=== PATIENT | male | born 1985 | race Caucasian/White ===

== ENCOUNTER 2020-08-24 21:23 | Emergency (ER) | payer MEDICAID ==
[~2020-08-24] VITALS: Ht 180.3 cm; Wt 85.0 kg
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
[2020-08-24 21:56] LABS: BASOPHILS % (AUTO) 1 % (0-1); EOSINOPHILS % (AUTO) 1 % (1-7); LYMPHOCYTES % (AUTO) 16 % (22-44); MEAN CORPUSCULAR HEMOGLOBIN 32.4 pg (27.5-34.5); MEAN CORPUSCULAR HGB CONC 34.5 g/dL (33.2-36.2); MEAN PLATELET VOLUME 6.5 fL (7.4-10.4); MONOCYTES % (AUTO) 8 % (2-9); NEUTROPHILS % (AUTO) 75 % (42-75); PLATELET COUNT 306 x10^3/uL (130-400); RED CELL DISTRIBUTION WIDTH 13.7 % (9.4-14.8)
[2020-08-24 21:57] LABS: MD NO
[2020-08-24 22:04] LABS: ANION GAP 5 mmol/L (5-15); CALCIUM 8.4 mg/dL (8.5-10.1); CHLORIDE 112 mmol/L (98-107); CREATININE 1.09 mg/dL (0.7-1.3)
[2020-08-24 22:05] LABS: ALANINE AMINOTRANSFERASE 34 U/L (12-78); ALBUMIN 3.6 g/dL (3.4-5.0)
[2020-08-24 22:07] LABS: ALKALINE PHOSPHATASE 69 U/L (45-117); BILIRUBIN,TOTAL 0.7 mg/dL (0.2-1.0); TOTAL PROTEIN 6.7 g/dL (6.4-8.2)
--- NOTE | 2020-08-24 22:11 | NUR ---
THIS RN TRIED TO GET PT TO URINATE FOR UA SAMPLE. PT KEEPS FALLING ASLEEP WHILE TRYING TO COMPLETE TASK. RN WILL TRY AGAIN LATER, PT RESTING ON GURNEY, DENIES NEEDS AT THIS TIME
--- NOTE | 2020-08-24 22:53 | NUR ---
PT STRAIGHT CATHED PER ERP, PT TOLERATED WELL, RESTING COMFORTABLY GURNEY, DENIES NEEDS AT THIS TIME.
[2020-08-24 23:12] LABS: AMPHETAMINE SCREEN, URINE Negative (Negative); BARBITURATE SCREEN, URINE Negative (Negative); BENZODIAZEPINE SCREEN, URINE Negative (Negative); CANNABINOID SCREEN, URINE Positive (Negative); COCAINE SCREEN, URINE Negative (Negative); METHADONE SCREEN, URINE Negative (Negative); OPIATE SCREEN, URINE Positive (Negative)
[2020-08-25] MEDS ORDERED: NALOXONE 0.4 MG/ML, 1ML IVPush ONE
[2020-08-25] MEDS ORDERED: NALOXONE 0.4 MG/ML, 1ML ONE (00:17)
--- NOTE | 2020-08-25 00:25 | NUR ---
18 G TO RIGHT AC, PT GIVEN NARCAN
[2020-08-25] MEDS ORDERED: PLEASE ENTER ALLERGIES MC SCH (00:30)
--- NOTE | 2020-08-25 00:44 | NUR ---
PT REASSESSED AFTER NARCAN, NO CHANGES IN PT CONDITION. PT RESTING COMFORTABLY ON BED, DENIES NEEDS AT THIS TIME
--- NOTE | 2020-08-25 01:30 | NUR ---
THIS RN SHOOK PT, PT ARROUSIBLE ENOUGH TO STATE HE IS AT [facility], THEN PT WENT PACK TO SLEEP. PT RESTING COMFORTABLY ON GURNEY, DENIES NEEDS AT THIS TIME.
--- NOTE | 2020-08-25 02:39 | NUR ---
THIS RN ASKED PT WHERE HE IS, PT GOES RIGHT BACK TO SLEEP WITHOUT ANSWERING. RESTING COMFORTABLY ON GURNEY, DENIES NEEDS AT THIS TIME
--- NOTE | 2020-08-25 03:32 | NUR ---
PT RESTING COMFORTABLY ON GURNEY, DENIES NEEDS AT THIS TIME
--- NOTE | 2020-08-25 04:26 | NUR ---
PT RESTING COMFORTABLY ON GURNEY, DENIES NEEDS AT THIS TIME
[2020-08-25 05:03] VITALS: BP 108/70
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
--- NOTE | 2020-08-25 05:50 | NUR ---
ERP REEVALUATED PT, PT ANSWERING QUESTIONS APPROPRIATELY, ABLE TO AMBULATE
--- NOTE | 2020-08-25 06:03 | NUR ---
Patient given discharge instructions and they have confirmed that they understand the instructions. Patient ambulatory with steady gait.
== END 2020-08-25 06:06 | disposition home or self-care (01) ==
LOC: ED 08-25 05:30
DX: R41.82 Altered mental status, unspecified (principal); R41.0 Disorientation, unspecified; R94.31 Abnormal electrocardiogram [ECG] [EKG]
CPT/HCPCS: 36415; 80053; 80299; 80307; 80320; 85025; 93005; 96374; 99285; J2310; 80329; G0480

== ENCOUNTER 2020-08-25 14:55 | Emergency (ER) | payer MEDICAID ==
[~2020-08-25] VITALS: Ht 154.9 cm; Wt 85.0 kg
--- NOTE | 2020-08-25 16:06 | NUR ---
BREAK RN: PT MERRY, RESTING ON JUANPABLO SAXENA NOTED. CALL LIGHT W/I REACH
[2020-08-25 16:28] LABS: BASOPHILS % (AUTO) 0 % (0-1); EOSINOPHILS % (AUTO) 0 % (1-7); LYMPHOCYTES % (AUTO) 15 % (22-44); MD NO; MEAN CORPUSCULAR HEMOGLOBIN 32.8 pg (27.5-34.5); MEAN CORPUSCULAR HGB CONC 34.5 g/dL (33.2-36.2); MEAN PLATELET VOLUME 6.5 fL (7.4-10.4); MONOCYTES % (AUTO) 4 % (2-9); NEUTROPHILS % (AUTO) 80 % (42-75); PLATELET COUNT 318 x10^3/uL (130-400); RED BLOOD COUNT 4.22 x10^6/uL (4.38-5.82); RED CELL DISTRIBUTION WIDTH 13.7 % (9.4-14.8)
[2020-08-25 16:35] LABS: ALANINE AMINOTRANSFERASE 39 U/L (12-78); ALBUMIN 3.6 g/dL (3.4-5.0); ANION GAP 7 mmol/L (5-15); CALCIUM 8.4 mg/dL (8.5-10.1); CHLORIDE 111 mmol/L (98-107); CREATININE 0.97 mg/dL (0.7-1.3); SALICYLATE LEVEL 2.2 mg/dL (2.8-20.0)
[2020-08-25 16:37] LABS: ALKALINE PHOSPHATASE 70 U/L (45-117); BILIRUBIN,TOTAL 0.6 mg/dL (0.2-1.0)
--- NOTE | 2020-08-25 20:10 | NUR ---
PT ABLE TO AMBULATE BUT IS STILL MILDLY UNSTEADY AT THIS TIME. WILL RECHECK AT 2100.
--- NOTE | 2020-08-25 20:49 | NUR ---
CHAYO PINK (FATHER) [phone]
--- NOTE | 2020-08-25 21:03 | NUR ---
RECEIVED REPORT FROM JOSELINE DE DIOS TO ASSUME CARE OF PT.
--- NOTE | 2020-08-25 21:04 | NUR ---
REPORT TO JOSELINE DANIELSON.
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
--- NOTE | 2020-08-25 22:24 | NUR ---
PT. AWAKE AND ALERT AT THIS TIME AND ABLE TO GIVE RN HIS ADDRESS. PT. NOW AMBULATORY WITH SEADY GAIT. PT. ABLE TO FULLY DRESS SELF AND AMBULATE TO D/C DESK WITH STEADY GAIT. NO DISTRESS NOTED. CAB VOU[employer]ER PROVIDED FOR SAFE D/C HOME.
[2020-08-25 22:25] VITALS: BP 124/75
== END 2020-08-25 22:25 | disposition home or self-care (01) ==
LOC: ED 15:27
DX: F11.122 Opioid abuse with intoxication with perceptual disturbance (principal); R94.31 Abnormal electrocardiogram [ECG] [EKG]
CPT/HCPCS: 36415; 80053; 80299; 80320; 80329; 85025; 93005; 99285; G0480